=== PATIENT | female | born 1980 | race Caucasian/White ===

== ENCOUNTER 2023-06-29 20:44 | Emergency (ER) | payer SELFPAY ==
[~2023-06-29] VITALS: Ht 175.3 cm; Wt 95.2 kg
[2023-06-29 20:56] VITALS: O2SAT 97
[2023-06-30] MEDS ORDERED: HYDROcodone-ACET 5/325MG TAB PO ONE
[2023-06-30] MEDS ORDERED: ceFAZolin 1GM/50ML 50 ML IV ONE ×2 (00:45)
[2023-06-30] MEDS ORDERED: ONDANSETRON ODT 4 MG TAB PO ONE ×2 (00:45)
[2023-06-30] MEDS ORDERED: MORPHINE SULFATE 4 MG/ML SYR/VIAL IV ONE (00:45)
[2023-06-30] MEDS ORDERED: TETANUS-DIPTH-ACEL PERTUSSIS 0.5ML SYR Tdap IM ONE (01:00)
[2023-06-30] MEDS ORDERED: AMOX875T4 PO (03:07)
[2023-06-30] MEDS ORDERED: ACE3T PO (03:07)
[2023-06-30] MEDS ORDERED: BACITRACIN TOP OINT 1 UD PKG TOP ONE (03:30)
[2023-06-30 05:19] VITALS: BP 135/76; PULSE 74; RESP 16
[2023-06-30] MEDS ORDERED: BACIOIN15 TOP (18:16)
== END 2023-06-30 06:35 | disposition home or self-care (01) ==
LOC: EDBD 20:44 → ER 20:54
DX: S51.852A Open bite of left forearm, initial encounter (principal); S62.617A Displaced fracture of proximal phalanx of left little finger, initial encounter for closed fracture; W54.0XXA Bitten by dog, initial encounter; Y93.89 Activity, other specified; Y92.89 Other specified places as the place of occurrence of the external cause; Y99.8 Other external cause status
CPT/HCPCS: 12002; 26770; 73090; 73130; 73140; 90471; 90715; 96365; 96375; 96376; 99284; J0690; J2270; Q0162